=== PATIENT | female | born 1970 | race Caucasian/White ===

== ENCOUNTER → 2022-09-27 | Outpatient (CLI) | payer BC ==
--- NOTE | 2022-09-27 18:01 | MM ---
Reason for Exam: Screening (asymptomatic). Last mammogram was performed 6 year(s) and 0 month(s) ago. Patient History: Menarche at age 16. First Full-Term at age 19. Postmenopausal. Risk Values: Soraida 5 year model risk: 0.6%. NCI Lifetime model risk: 6.0%. Prior Study Comparison: 09/13/2016 Bilateral Diagnostic Mammogram, [facility]. Tissue Density: The breast tissue is heterogeneously dense. This may lower the sensitivity of mammography. Findings: Analyzed By CAD. Areas of asymmetric density remain unchanged. There is no suspicious group of microcalcifications or new suspicious mass in either breast. Overall Assessment: Benign, BI-RAD 2 Management: Screening Mammogram of both breasts in 1 year. 1. Patient should continue monthly self breast exams. 2. A clinical breast exam by your physician is recommended on an annual basis. 3. This exam should not preclude additional follow-up of suspicious palpable abnormalities. Electronically signed and approved by: Veronica Pate M.D. Radiologist
== END | disposition home or self-care (01) ==
LOC: RADMAMWWP 07:59
PROVIDERS: ATTEND Family Medicine
DX: Z12.31 Encounter for screening mammogram for malignant neoplasm of breast (principal); Z78.0 Asymptomatic menopausal state
CPT/HCPCS: 77067

== ENCOUNTER → 2023-09-28 | Outpatient (CLI) | payer BC ==
--- NOTE | 2023-09-28 11:44 | MM ---
Reason for Exam: Screening (asymptomatic). Last screening mammogram was performed 12 month(s) ago. Patient History: Menarche at age 16. First Full-Term at age 19. Postmenopausal. Risk Values: Soraida 5 year model risk: 0.7%. NCI Lifetime model risk: 5.9%. Prior Study Comparison: 09/13/2016 Bilateral Diagnostic Mammogram, [facility]. 09/27/2022 Bilateral MG screening mammo w CAD, [facility]. Tissue Density: The breast tissue is heterogeneously dense. This may lower the sensitivity of mammography. Findings: Analyzed By CAD. Asymmetry left breast MLO view measuring 10 mm 5.3 cm from nipple in the upper aspect. Focal asymmetry right breast 11 mm from the nipple measuring 9 mm inferiorly and medially. Overall Assessment: Incomplete: need additional imaging evaluation, BI-RAD 0 Management: Diagnostic Mammogram of both breasts. [facility] will attempt to contact patient to return for supplemental views and ultrasound if indicated. Patient should continue monthly self-breast exams. A clinical breast exam by your physician is recommended on an annual basis. This exam should not preclude additional follow-up of suspicious palpable abnormalities. Note on Soraida scores and lifetime risk: 1. A Soraida score greater than 3% is considered moderate risk. If this is the case, consider specialist referral to assess eligibility for a risk reducing agent. 2. If overall lifetime risk for the development of breast cancer is 20% or higher, the patient may qualify for future screening with alternating mammogram and breast MRI. Electronically signed and approved by: Wolf Lin DO
== END | disposition home or self-care (01) ==
LOC: RADMAMWWP 09:55
PROVIDERS: ATTEND Family Medicine
DX: Z12.31 Encounter for screening mammogram for malignant neoplasm of breast (principal); Z78.0 Asymptomatic menopausal state
CPT/HCPCS: 77067

== ENCOUNTER → 2023-10-10 | Outpatient (CLI) | payer BC ==
--- NOTE | 2023-10-10 07:56 | MM ---
Reason for Exam: Additional evaluation requested from prior study. Last screening mammogram was performed less than 1 month ago. Patient History: Menarche at age 16. First Full-Term at age 19. Postmenopausal. Risk Values: Soraida 5 year model risk: 0.7%. NCI Lifetime model risk: 5.9%. Prior Study Comparison: 09/27/2022 Bilateral MG screening mammo w CAD, [facility]. 09/28/2023 Bilateral MG screening mammo w CAD, [facility]. Tissue Density: The breast tissue is heterogeneously dense. This may lower the sensitivity of mammography. Findings: Analyzed By CAD. Within the right subareolar breast there is persistence of a nodularity which partially disperses on compression. Ultrasound is recommended for additional evaluation. Within the left upper outer breast under compression the area of distortion disperses normally. Short-term follow-up in 6 months is recommended. Overall Assessment: Incomplete: need additional imaging evaluation, BI-RAD 0 Management: Diagnostic Breast Ultrasound of the right breast. A negative mammogram report should not preclude additional follow up of suspicious palpable abnormalities. Patient should continue monthly self breast exam. A clinical breast exam by your physician is recommended on an annual basis and results should be correlated with mammographic findings. Electronically signed and approved by: Grayson Plascencia D.O. Radiologis
--- NOTE | 2023-10-10 08:33 | USB ---
Reason for Exam: Additional evaluation requested from abnormal screening. Patient History: Menarche at age 16. First Full-Term at age 19. Postmenopausal. Risk Values: Soraida 5 year model risk: 0.7%. NCI Lifetime model risk: 5.9%. Technique: Method: Targeted. Prior Study Comparison: 09/13/2016 Bilateral Diagnostic Mammogram, [facility]. 09/27/2022 Bilateral MG screening mammo w CAD, [facility]. 09/28/2023 Bilateral MG screening mammo w CAD, [facility]. Findings: The lower inner quadrant of the left breast, the axilla of the right breast and the retroareolar of the right breast were scanned. At the 4:00 position 1 cm from the nipple there is a hypoechoic area measuring 1.0 x 0.4 x 0.7 cm. There is some vascular flow adjacent. Internal flow is evident. Overall Assessment: Suspicious, BI-RAD 4 Management: Ultrasound Core Biopsy of the right breast. A clinical breast exam by your physician is recommended on an annual basis and results should be correlated with mammographic findings. This exam should not preclude additional follow-up of suspicious palpable abnormalities. Results were given to the patient verbally at the time of exam. Electronically signed and approved by: Grayson Plascencia D.O. Radiologis
== END | disposition home or self-care (01) ==
LOC: RADMAMWWP 07:28
PROVIDERS: ATTEND Family Medicine
DX: R92.333 Mammographic heterogeneous density, bilateral breasts (principal); Z78.0 Asymptomatic menopausal state
CPT/HCPCS: 77062; 77066

== ENCOUNTER → 2023-10-24 | Day surgery (SDC) | payer BC ==
--- NOTE | 2023-10-27 14:40 | MM ---
Reason for Exam: Post Procedure Mammogram. Last screening mammogram was performed less than 1 month ago. Patient History: Menarche at age 16. First Full-Term at age 19. Postmenopausal. Risk Values: Soraida 5 year model risk: 0.7%. NCI Lifetime model risk: 5.9%. Prior Study Comparison: 09/27/2022 Bilateral MG screening mammo w CAD, [facility]. 09/28/2023 Bilateral MG screening mammo w CAD, [facility]. 10/10/2023 Bilateral MG 3D work up w/cad ROSANA, [facility]. Tissue Density: Right: The breast tissue is heterogeneously dense. This may lower the sensitivity of mammography. Pathology Description: Location: 4 o'clock. Marker Left Behind. Needle Type: Mammotome Cores: 4 Gauge: 13 The procedure of ultrasound guided core biopsy was explained to the patient. Benefits, alternatives, and risks were discussed. An informed consent was then obtained. The patient was placed in supine positioning for imaging and for the procedure. The overlying skin was prepped and draped in usual sterile fashion. Lidocaine was used as anesthetic into the skin and subcutaneous tissue up to area of concern in the 4:00 subareolar right breast. Under ultrasound guidance, a 13-gauge vacuum-assisted mammotome biopsy gun was used to obtain 4 core samples. Following this, a coil clip was left in lesion. The patient tolerated the procedure well without any immediate complication. The patient was kept in the radiology department for short stay after the procedure and then discharged home in stable condition. Postprocedure mammogram: The patient was transferred to mammography for physician ordered post procedure mammogram for clip placement verification. Postprocedure mammogram shows the microclip at the site of mammographic density. IMPRESSION: Successful, uncomplicated ultrasound guided core biopsy of area of concern in the 4:00 subareolar right breast, full pathology results to follow. Pathology Results: Result: High risk, Intraductual papilloma high risk. RIGHT BREAST, 4:00, NEEDLE CORE BIOPSY: Sclerotic intraductal papilloma. Overall Assessment: High risk Assessment: MG diagnostic mammo RT wo CAD - Right: Suspicious, BI-RAD 4. Management: Surgical Consultation of the right breast. Electronically signed and approved by: Veronica Pate M.D. Radiologist
== END ==
LOC: RADUSWWP 12:37
PROVIDERS: ATTEND Surgery
DX: D24.1 Benign neoplasm of right breast (principal)
CPT/HCPCS: 88305; 77065; 19083; A4648

== ENCOUNTER → 2023-11-04 | Outpatient (CLI) | payer BC ==
--- NOTE | 2023-11-04 12:02 | P.GSHP ---
History of Present Illness H&P Date: 11/04/23 Chief Complaint: intraductal papilloma right breast Cierra is a 53 year old female seen in consultation for Dr. Peña regarding a biopsy proven intraductal papilloma in the right breast. She had a bilateral mammogram on 09-28-23 which revealed a lesion behind the right nipple. She than had a right breast ultrasound revealing a 1 by o.7 cm area behind the right nipple. She had an ultrasound core biopsy on which showed an intradcutal papilloma. She did not feel anything in her breast and this was found on a routine mammogram. She has never had any surgery on her breast. She is not complaining of any nipple discharge or skin changes. She has not had any recent trauma or infection in the breast. Caffeine: 2 cups coffee/day nicotine: stopped smoking in 2021, vapes now 1 every week chocolate: occasional BCP: many years ago and did norplant for 5 years hormones: none Family History: no history of cancer Hormonal History: menarche: 15 breast fed: yes, age at : 20 menopause: 43 Surgical History: tubaligation Medical History: none SociL History: nicotine: as above alcohol: none drugs: none - Constitutional Constitutional: Denies chills, Denies fever - EENT Eyes: denies blurred vision, denies pain Ears: deny: decreased hearing, tinnitus Ears, nose, mouth and throat: Denies headache, Denies sore throat - Breasts Breasts: bilateral: as per HPI - Cardiovascular Cardiovascular: Denies chest pain, Denies shortness of breath - Respiratory Respiratory: Reports as per HPI - Gastrointestinal Gastrointestinal: Reports constipation - Genitourinary (Female) Genitourinary: Denies dysuria, Denies hematuria - Menstruation Menstruation: Reports postmenopausal - Musculoskeletal Musculoskeletal: Denies myalgias - Integumentary Integumentary: Denies pruritus, Denies rash - Neurological Neurological: Denies numbness, Denies weakness - Psychiatric Psychiatric: Denies anxiety, Denies depression - Endocrine Endocrine: Denies fatigue, Denies weight change - Hematologic/Lymphatic Comment: none - Allergic/Immunologic Allergic/Immunologic: Reports as per HPI Past Medical History History of Any Multi-Drug Resistant Organisms: None Reported Smoking Status: Former smoker Medications and Allergies Home Medications Medication Instructions Recorded Confirmed Type No Known Home Medications 10/12/23 11/04/23 History Allergies Allergy/AdvReac Type Severity Reaction Status Date / Time No Known Allergies Allergy Verified 11/04/23 11:44 Surgical - Exam Vital Signs Temp Pulse Resp BP Pulse Ox 97.8 F 66 18 125/80 99 11/04/23 11:41 11/04/23 11:41 11/04/23 11:41 11/04/23 11:41 11/04/23 11:41 - General moderate distress - Eyes normal ocular movement - Neck trachea midline - Respiratory normal respiratory effort, clear to auscultation - Cardiovascular Rhythm: regular Heart Sounds: normal: S1, S2 - Integumentary normal turgor - Neurologic no disoriented, no combative - Musculoskeletal normal gait - Psychiatric oriented to time, oriented to person, oriented to place, speech is normal, memory intact Breast Exam: BRA: 32B inspection: Bilateral grade 2 ptosis, right breast mild ecchymosis related to recent biopsy Palpation: Right breast: Multi positional exam no dominant masses or nodules of concern, particular attention to the retroareolar area does not reveal any palpable mass Right axilla: No adenopathy of concern Left breast: Multi positional exam no dominant masses or nodules of concern, Left axilla: No adenopathy of concern Results Mammogram and ultrasound reviewed with Dr. Galvan from radiology Assessment and Plan Assessment: Impression: Biopsy-proven right breast intraductal papilloma/approximately 1 cm in s ize/reviewed with radiology felt this should be removed Fibrocystic breast changes Plan: Right breast needle localization excisional biopsy, possible oncoplastic tissue transfer CC: Dr. Prerna Bautista
[2023-11-04 12:12] VITALS: BP 125/80; PULSE 66; RESP 18; TEMP 97.8
== END ==
LOC: WWCWWP 11:36
PROVIDERS: ATTEND Surgery
DX: N60.11 Diffuse cystic mastopathy of right breast (principal); D24.1 Benign neoplasm of right breast; Z87.891 Personal history of nicotine dependence

== ENCOUNTER → 2023-12-22 | Outpatient (CLI) | payer BC ==
--- NOTE | 2023-12-22 15:03 | P.PN ---
Subjective Progress Note Date: 12/22/23 Principal diagnosis: right breast intraductal papilloma intraductal papilloma right breast Cierra is a 53 year old female seen in consultation for Dr. Peña regarding a biopsy proven intraductal papilloma in the right breast. She had a bilateral mammogram on 09-28-23 which revealed a lesion behind the right nipple. She than had a right breast ultrasound revealing a 1 by o.7 cm area behind the right nipple. She had an ultrasound core biopsy on which showed an intradcutal papilloma. She did not feel anything in her breast and this was found on a routine mammogram. She has never had any surgery on her breast. She is not complaining of any nipple discharge or skin changes. She has not had any recent trauma or infection in the breast. Caffeine: 2 cups coffee/day nicotine: stopped smoking in 2021, vapes now 1 every week chocolate: occasional BCP: many years ago and did norplant for 5 years hormones: none Family History: no history of cancer Hormonal History: menarche: 15 breast fed: yes, age at : 20 menopause: 43 Surgical History: tubaligation Medical History: none SociL History: nicotine: as above alcohol: none drugs: none - Constitutional Constitutional: Denies chills, Denies fever - EENT Eyes: denies blurred vision, denies pain Ears: deny: decreased hearing, tinnitus Ears, nose, mouth and throat: Denies headache, Denies sore throat - Breasts Breasts: bilateral: as per HPI - Cardiovascular Cardiovascular: Denies chest pain, Denies shortness of breath - Respiratory Respiratory: Reports as per HPI - Gastrointestinal Gastrointestinal: Reports constipation - Genitourinary (Female) Genitourinary: Denies dysuria, Denies hematuria - Menstruation Menstruation: Reports postmenopausal - Musculoskeletal Musculoskeletal: Denies myalgias - Integumentary Integumentary: Denies pruritus, Denies rash - Neurological Neurological: Denies numbness, Denies weakness - Psychiatric Psychiatric: Denies anxiety, Denies depression - Endocrine Endocrine: Denies fatigue, Denies weight change - Hematologic/Lymphatic Comment: none - Allergic/Immunologic Allergic/Immunologic: Reports as per HPI Past Medical History History of Any Multi-Drug Resistant Organisms: None Reported Smoking Status: Former smoker Medications and Allergies Home Medications Medication Instructions Recorded Confirmed Type No Known Home Medications 10/12/23 11/04/23 History Allergies Allergy/AdvReac Type Severity Reaction Status Date / Time No Known Allergies Allergy Verified 11/04/23 11:44 Objective - Vital Signs Vital signs: Vital Signs Temp 97.9 F 12/22/23 14:38 Pulse 66 12/22/23 14:38 Resp 15 12/22/23 14:38 BP 110/68 12/22/23 14:38 Pulse Ox 100 12/22/23 14:38 FiO2 Intake & Output 12/21/23 12/22/23 12/22/23 18:59 06:59 18:59 Weight 58.06 kg - Constitutional General appearance: Present: cooperative - EENT Eyes: Present: EOMI ENT: Present: hearing grossly normal - Neck Neck: Present: normal ROM - Respiratory Respiratory: bilateral: CTA - Cardiovascular Heart sounds: normal: S1, S2 - Integumentary Integumentary: Present: normal turgor - Musculoskeletal Musculoskeletal: Present: gait normal - Psychiatric Psychiatric: Present: A&O x's 3, appropriate affect, intact judgment & insight - Additional findings Additional findings: Breast Exam: BRA: 32B inspection: Bilateral grade 2 ptosis, Palpation: Right breast: Multi positional exam no dominant masses or nodules of concern, particular attention to the retroareolar area does not reveal any palpable mass Right axilla: No adenopathy of concern Left breast: Multi positional exam no dominant masses or nodules of concern, Left axilla: No adenopathy of concern Assessment and Plan Assessment: Impression: Biopsy-proven right breast intraductal papilloma/approximately 1 cm in size/reviewed with radiology felt this should be removed Fibrocystic breast changes Plan: Right breast needle localization excisional biopsy, possible oncoplastic tissue transfer, probable periaeorolar incision if possible CC: Dr. Prerna Bautista
[2023-12-22 15:09] VITALS: BP 110/68; PULSE 66; RESP 15; TEMP 97.9
== END ==
LOC: WWCWWP 14:06
PROVIDERS: ATTEND Surgery
DX: D24.1 Benign neoplasm of right breast (principal); R92.8 Other abnormal and inconclusive findings on diagnostic imaging of breast; L98.8 Other specified disorders of the skin and subcutaneous tissue; N60.11 Diffuse cystic mastopathy of right breast; Z87.891 Personal history of nicotine dependence

== ENCOUNTER 2023-12-27 08:25 | Day surgery (SDC) | payer BC ==
[~2023-12-27 08:25] MED LIST: HYDROmorphone 0.5 MG/0.5 ML SYRINGE IVP PRN; LIDOCAINE 1% (10MG/ML) FOR IV START INTRADERMA PRN; droPERidol 5 MG/2 ML VIAL IVP ONE
[2023-12-27] MEDS: LACTATED RINGERS 1,000 ML IV ONE (08:53)
[2023-12-27] MEDS: SCOPOLAMINE 1 MG/72 HR PATCH TRANSDERM ONE (09:17)
[2023-12-27] MEDS ORDERED: ALPRAZolam 0.5 MG TAB ONE (09:28)
[2023-12-27] MEDS: ALPRAZolam 0.5 MG TAB PO ONE (09:30)
[2023-12-27] MEDS: LIDOCAINE 1% INJ 10MG/ML (20 ML MDV) SQ ONE ×2 (10:12→14:56)
[2023-12-27] MEDS: ONDANSETRON 4 MG/2 ML VIAL ONE (11:10)
[2023-12-27] MEDS: HEPARIN SODIUM,PORCINE 5,000 UNIT/ML 1 ML VIAL SQ PRN (11:10)
[2023-12-27] MEDS: DEXAMETHASONE SOD PHOSPHATE 4 MG/ML 1 ML VIAL IV ONE (11:10)
[2023-12-27] MEDS ORDERED: fentaNYL (PF) 50 MCG/ML 2 ML AMP ONE (13:45)
[2023-12-27] MEDS ORDERED: MIDAZOLAM 2 MG/2 ML VIAL ONE (13:45)
[2023-12-27] MEDS ORDERED: LIDOCAINE 1% INJ 10MG/ML (20 ML MDV) ONE (13:45)
[2023-12-27] MEDS ORDERED: ePHEDrine 50 MG/ML 1 ML VIAL ONE (13:45)
[2023-12-27] MEDS ORDERED: PROPOFOL 10 MG/ML 20 ML VIAL IV ONE (13:45)
--- NOTE | 2023-12-27 14:59 | P.OP ---
Date of Procedure: 12/27/23 Preoperative Diagnosis: Right breast intraductal papilloma Postoperative Diagnosis: Same Procedure(s) Performed: Right breast needle localization excision Anesthesia: KEN Surgeon: Gabriela De Jesus Estimated Blood Loss (ml): 5 IV fluids (ml): 500 Pathology: other (Breast tissue) Condition: stable Disposition: same day Indications for Procedure: Core biopsy intraductal papilloma right breast Operative Findings: Dense breast tissue Description of Procedure: The patient was first seen in the radiology department for needle localization of the area of concern was performed. The patient was brought to the operative suite and following induction of anesthesia the right breast was prepped and draped in a sterile fashion. A periareolar incision was made and carried down to the shaft of the needle. The tissue was grasped and surrounding tissue was excised. The specimen was approximately 4 x 3 cm in size. Careful dissection was performed around the tip of the needle. The specimen was painted for orientation and sent for radiographic evaluation. The radiologist stated that they could not confirm that the clip was present in the specimen that it may be superimposed by the needle. Consider further tissue resection however this is close under the nipple areolar complex nothing was palpable and we did not want to cause devascularization of the nipple areolar area or inversion of the nipple if possible. Therefore it was determined to terminate the procedure. The wound was well irrigated. After assuring that hemostasis was attained Surgicel in powder form was placed. Titanium clips were placed. Again nothing palpable of or abnormal was identified on examination. We were uncertain as to whether the clip had been removed. The deep tissues were closed using 3-0 Vicryl suture. The skin was closed using 4-0 Monocryl. The patient tolerated the procedure in stable condition. A periareolar incision had been made. The patient will have a repeat right breast mammogram and ultrasound in 6 months.
[2023-12-27 15:29] VITALS: TEMP 96.8
[2023-12-27] MEDS: LACTATED RINGERS 1,000 ML IV SCH (15:49)
[2023-12-27 16:03] VITALS: PULSE 50
[2023-12-27 16:37] VITALS: BP 96/62; RESP 18
--- NOTE | 2024-01-05 10:38 | MM ---
Risk Values: Soraida 5 year model risk: 0.8%. NCI Lifetime model risk: 6.9%. Pathology Description: Location: upper inner quadrant, anterior. Approach: CC FA Needle Type: 5 cm Kopan wire loc for us coil hydromark clip, high risk, papilloma. The needle localization procedure with wire placement for surgical excision was explained to the patient. Benefits, alternatives, and risks were discussed. An informed consent was then obtained. A timeout was performed. The overlying skin was prepped in usual sterile fashion. Lidocaine was used as anesthetic into the skin and subcutaneous tissue up to the level of area of concern. A 5 cm needle was used. It was placed using a superior craniocaudal approach under mammographic guidance. Subsequent 90 degrees mammogram show the needle to be in satisfactory position relative to the targeted area. The wire was placed and the needle was withdrawn. The wire was fixed to patient's skin. Images were reviewed with the referring surgeon prior to surgery. The marker location near the tip of the needle was discussed. The patient tolerated the procedure well without any immediate complication. The patient was kept in the radiology department for short stay after the procedure and then taken to surgery for surgical excision. Specimen: Wire is identified within the specimen mammogram. The core marker however is not clearly identified. There is a density at the tip of the needle which potentially could obscure a portion of the core marker. This may be calcification. Recommend pathologic evaluation for the core marker. Specimen image is discussed with the surgeon in person. Impression: 1. Successful needle localization right breast. 2. Nondefinitive identification of the core marker. Recommendations: Recommendations are pending pathology results. Pathology Results: Result: Benign, Intraductal Papilloma. Pathology and radiology were reviewed. Findings are concordant. RIGHT BREAST, LUMPECTOMY: Benign intraductal papilloma, margins negative. Background breast with fibrocystic change, fibrosis, and focal acute and chronic mastitis, sclerosing adenosis, columnar cell change, usual ductal hyperplasia, and microcalcification. Negative for malignancy. Overall Assessment: Benign Management: Diagnostic Mammogram of the right breast in 6 months. Electronically signed and approved by: Grayson Plascencia D.O. Radiologis
== END 2023-12-27 16:25 | disposition home or self-care (01) ==
LOC: OR 08:25
PROVIDERS: ATTEND Surgery
DX: N60.21 Fibroadenosis of right breast (principal); D24.1 Benign neoplasm of right breast; N61.0 Mastitis without abscess
CPT/HCPCS: 19125; 88307; 76098; 19281; C1819; J2250; J1644; J1100; J2405; J2001; J3010; J2704

== ENCOUNTER → 2024-01-05 | Outpatient (CLI) | payer BC ==
--- NOTE | 2024-01-05 15:41 | P.CON ---
Consult Note - . Consult date: 01/05/24 Assessment/Plan:: Nazanin is status post right breast needle localization and lumpectomy on 12-27-23. Her pathology revealed a benign intraductal papilloma. We were uncertain as to whether the clip had been removed, however the pathology was concordant with what we were expecting. Lungs: Clear Heart: Regular rate and rhythm Incision: Clean and dry Impression: The pathology is believed to be concordant with that which we were concerned about, there is some question as to whether the clip was removed with the specimen however I believe that the pathology was removed completely. Plan: Repeat right breast mammogram in 6 months, even if the clip is noted to be present we would most likely watch this conservatively CC: Dr. Peña
[2024-01-05 15:42] VITALS: BP 101/69; PULSE 72; RESP 15; TEMP 98.1
== END ==
LOC: WWCWWP 14:25
PROVIDERS: ATTEND Surgery
DX: Z53.9 Procedure and treatment not carried out, unspecified reason (principal)

== ENCOUNTER → 2024-06-29 | Outpatient (CLI) | payer BC ==
--- NOTE | 2024-07-02 10:20 | MM ---
Reason for Exam: Follow-up at short interval from prior study. Last screening mammogram was performed 8 month(s) ago. Patient History: Menarche at age 16. First Full-Term at age 19. Postmenopausal. Previous Hyperplasia w/o Atypia at age 53. 12/27/2023, Lumpectomy on the Right side. 12/27/2023, Benign MG pre op needle loc RT on the right side. 10/24/2023, High risk US biopsy breast VAD RT on the right side. Risk Values: Soraida 5 year model risk: 1.0%. NCI Lifetime model risk: 8.7%. Prior Study Comparison: 09/28/2023 Bilateral MG screening mammo w CAD, [facility]. 10/10/2023 Bilateral MG 3D work up w/cad ROSANA, [facility]. 10/24/2023 Right MG diagnostic mammo RT wo CAD, [facility]. Tissue Density: Right: The breasts are heterogeneously dense, which may obscure small masses. Findings: Analyzed By CAD. The pattern appears stable. Surgical clips are from prior lumpectomy. No underlying retroareolar nodularity is evident. No suspicious groups of microcalcifications, spiculated or lobular masses, architectural distortion or other secondary signs of malignancy are mammographically apparent. Overall Assessment: Benign, BI-RAD 2 Management: Screening Mammogram of both breasts in 3 months. A negative mammogram report should not preclude additional follow up of suspicious palpable abnormalities. Patient should continue monthly self breast exam. A clinical breast exam by your physician is recommended on an annual basis and results should be correlated with mammographic findings. Note on Soraida scores and lifetime risk: 1. A Soraida score greater than 3% is considered moderate risk. If this is the case, consider specialist referral to assess eligibility for a risk reducing agent. 2. If overall lifetime risk for the development of breast cancer is 20% or higher, the patient may qualify for future screening with alternating mammogram and breast MRI. [facility], , 06/29/2024 9:35 AM . Electronically signed and approved by: Grayson Plascencia D.O. Radiologis
== END | disposition home or self-care (01) ==
LOC: RADMAMWWP 09:19
PROVIDERS: ATTEND Surgery
CPT/HCPCS: 77061; 77065

== ENCOUNTER → 2024-07-05 | Outpatient (CLI) | payer BC ==
--- NOTE | 2024-07-05 13:32 | P.PN ---
Subjective Progress Note Date: 07/05/24 Principal diagnosis: intraductal papilloma right breast 12/22/23 Principal diagnosis: right breast intraductal papilloma Cierra is a 53 year old female seen in consultation for Dr. Peña regarding a biopsy proven intraductal papilloma in the right breast. She had a bilateral mammogram on 09-28-23 which revealed a lesion behind the right nipple. She than had a right breast ultrasound revealing a 1 by o.7 cm area behind the right nipple. She had an ultrasound core biopsy on which showed an intradcutal papilloma. She did not feel anything in her breast and this was found on a routine mammogram. She has never had any surgery on her breast. She is not complaining of any nipple discharge or skin changes. She had not had any recent trauma or infection in the breast. She underwent a right breast needle localization and lumpectomy of this area on 12-27-2023. Her pathology revealed a benign intraductal papilloma although the spiral clip which had been marking it was not seen in the resection specimen for her. This was felt to be benign and concordant. She subsequently has now undergone a repeat right breast mammogram in 06-29-2024. The spiral clip is not present in the breast. It is felt to be benign BI-RADS 2. This was personally reviewed and interpreted. She is not complaining of any new lumps masses or nodules of concern in either breast. Caffeine: 2 cups coffee/day nicotine: stopped smoking in 2021, vapes now 1 every week chocolate: occasional BCP: many years ago and did norplant for 5 years hormones: none Family History: no history of cancer Hormonal History: menarche: 15 breast fed: yes, age at : 20 menopause: 43 Surgical History: tubaligation right breast biopsy Medical History: none Social History: nicotine: as above alcohol: none drugs: none - Constitutional Constitutional: Denies chills, Denies fever - EENT Eyes: denies blurred vision, denies pain Ears: deny: decreased hearing, tinnitus Ears, nose, mouth and throat: Denies headache, Denies sore throat - Breasts Breasts: bilateral: as per HPI - Cardiovascular Cardiovascular: Denies chest pain, Denies shortness of breath - Respiratory Respiratory: Reports as per HPI - Gastrointestinal Gastrointestinal: Reports constipation - Genitourinary (Female) Genitourinary: Denies dysuria, Denies hematuria - Menstruation Menstruation: Reports postmenopausal - Musculoskeletal Musculoskeletal: Denies myalgias - Integumentary Integumentary: Denies pruritus, Denies rash - Neurological Neurological: Denies numbness, Denies weakness - Psychiatric Psychiatric: Denies anxiety, Denies depression - Endocrine Endocrine: Denies fatigue, Denies weight change - Hematologic/Lymphatic Comment: none - Allergic/Immunologic Allergic/Immunologic: Reports as per HPI Past Medical History History of Any Multi-Drug Resistant Organisms: None Reported Smoking Status: Former smoker Medications and Allergies Home Medications Medication Instructions Recorded Confirmed Type No Known Home Medications 10/12/23 11/04/23 History Allergies Allergy/AdvReac Type Severity Reaction Status Date / Time No Known Allergies Allergy Verified 11/04/23 11:44 Objective - Constitutional General appearance: Present: cooperative - EENT Eyes: Present: EOMI ENT: Present: hearing grossly normal - Neck Neck: Present: normal ROM - Respiratory Respiratory: bilateral: CTA - Cardiovascular Rhythm: regular Heart sounds: normal: S1, S2 - Integumentary Integumentary: Present: normal turgor - Musculoskeletal Musculoskeletal: Present: gait normal - Psychiatric Psychiatric: Present: A&O x's 3, appropriate affect, intact judgment & insight - Additional findings Additional findings: Breast Exam: BRA: 32B inspection: Bilateral grade 2 ptosis, Palpation: Right breast: Multi positional exam no dominant masses or nodules of concern, particular attention to the retroareolar area does not reveal any palpable mass Right axilla: No adenopathy of concern Left breast: Multi positional exam no dominant masses or nodules of concern, Left axilla: No adenopathy of concern Assessment and Plan Assessment: Impression: Biopsy-proven right breast intraductal papilloma/approximately 1 cm in size/r eviewed with radiology felt this should be removed done on 12-27-23; the spiral clip did not show in the biopsy specimen; no spiral clip on the right breast mammogram 06-29-24 Fibrocystic breast changes Plan: bilateral mammogram September with appointment at that time CC: Dr. Dylan Anthony
[2024-07-05 13:51] VITALS: BP 106/75; PULSE 56; RESP 16; TEMP 98.3
== END ==
LOC: WWCWWP 12:11
PROVIDERS: ATTEND Surgery
DX: R92.8 Other abnormal and inconclusive findings on diagnostic imaging of breast (principal); D24.1 Benign neoplasm of right breast; N60.11 Diffuse cystic mastopathy of right breast; N60.12 Diffuse cystic mastopathy of left breast; Z87.891 Personal history of nicotine dependence; Z86.018 Personal history of other benign neoplasm

== ENCOUNTER → 2024-10-01 | Outpatient (CLI) | payer BC ==
--- NOTE | 2024-10-02 14:50 | MM ---
Reason for Exam: Screening (asymptomatic). Last screening mammogram was performed 11 month(s) ago. Patient History: Menarche at age 16. First Full-Term at age 19. Postmenopausal. Previous Hyperplasia w/o Atypia at age 53. 12/27/2023, Lumpectomy on the Right side. 12/27/2023, Benign MG pre op needle loc RT on the right side. 10/24/2023, High risk US biopsy breast VAD RT on the right side. Risk Values: Soraida 5 year model risk: 1.0%. NCI Lifetime model risk: 8.5%. Prior Study Comparison: 10/10/2023 Bilateral MG 3D work up w/cad [facility], [facility]. 10/24/2023 Right MG diagnostic mammo RT wo CAD, [facility]. 06/29/2024 Right MG 3D diag mammo w/cad RT, [facility]. Tissue Density: The breasts are heterogeneously dense, which may obscure small masses. Findings: Analyzed By CAD. The pattern is symmetrical. Prior lumpectomy with surgical clips on the right. Coarse calcification in the left breast No suspicious groups of microcalcifications, spiculated or lobular masses, architectural distortion or other secondary signs of malignancy are mammographically apparent. Overall Assessment: Benign, BI-RAD 2 Management: Screening Mammogram of both breasts in 1 year. A negative mammogram report should not preclude additional follow up of suspicious palpable abnormalities. Patient should continue monthly self breast exam. A clinical breast exam by your physician is recommended on an annual basis and results should be correlated with mammographic findings. Note on Soraida scores and lifetime risk: 1. A Soraida score greater than 3% is considered moderate risk. If this is the case, consider specialist referral to assess eligibility for a risk reducing agent. 2. If overall lifetime risk for the development of breast cancer is 20% or higher, the patient may qualify for future screening with alternating mammogram and breast MRI. [facility], , 10/02/2024 2:47 PM. Electronically signed and approved by: Grayson Plascencia D.O. Radiologis
== END | disposition home or self-care (01) ==
LOC: RADMAMWWP 10:16
PROVIDERS: ATTEND Surgery
DX: Z12.31 Encounter for screening mammogram for malignant neoplasm of breast (principal); R92.333 Mammographic heterogeneous density, bilateral breasts; Z78.0 Asymptomatic menopausal state
CPT/HCPCS: 77063; 77067